=== PATIENT | female | born 1965 | race Caucasian/White ===

== ENCOUNTER → 2016-11-15 | Outpatient (CLI) | payer OTHER | LOC: RAD 04:36 | DX: Z12.31 Encounter for screening mammogram for malignant neoplasm of breast (principal) ==

== ENCOUNTER → 2018-05-14 | Outpatient (CLI) | payer OTHER ==
--- NOTE | ~2018-05-14 | SLE ---
[facility] [place] [address] POLYSOMNOGRAPHY STUDY Name: GALI GOMEZ Room #: REG [facility]#: [id number] Admission: 05/14/18 Attend Phys: Alexy Hong MD Discharge: Date of : 65 Report #: [id number] THIS REPORT FOR: //name// CC: Alexy Hong [facility] physician/PCP Francisco Thapa MD DATE OF SERVICE: 05/14/2018 SLEEP STUDY ATTENDING PHYSICIAN: Dr. Francisco Thapa. The patient is a 52-year-old who weighs 209 pounds and is 65 inches tall with a BMI of 34.8. The patient had a home sleep study and was found to have severe DAI at an AHI of 37 per hour. As a result, the patient was referred for in-lab CPAP titration study. During the night study, the patient spent 417 minutes in bed and slept for 304 minutes with a sleep efficiency of 73%. Sleep latency was 22.7 minutes with a REM latency of 75 minutes. Overall, sleep architecture showed normal stage 1 and stage 2 sleep, increased slow wave and normal REM sleep. EKG monitoring revealed average heart rate of 68 beats per minute. No sustained arrhythmias were observed. No clinically significant PLMS seen. The patient was started on CPAP at 5 cm water and titrated up to 13 cm water. At the final pressure, the patient slept for 61 minutes. The patient had supine sleep, but no REM sleep seen. The patient's AHI was reduced to 2 per hour and oxygen saturation remained above 92%. At the lower pressure of 12 cm water, the patient did have 42 minutes of REM sleep and the patient's AHI was still 3.5 per hour. I would recommend the final pressure of 13 cm water and it should be effective. IMPRESSION: 1. Severe sleep apnea diagnosed by previous home sleep study. 2. No clinically significant periodic limb movements during sleep. RECOMMENDATIONS: 1. CPAP at 13 cm water completely eliminated the patient's sleep apnea and should be used on a nightly basis. 2. Follow up in 4-6 weeks to assess compliance with CPAP and to document clinical improvement. 3. Weight loss is strongly advised. [facility] [address] [place] [address] POLYSOMNOGRAPHY STUDY Name: GALI GOMEZWELL [id number] Admission: 05/14/18 Attend Phys: Alexy Hong MD Discharge: Date of : 65 Report #: [id number] 4. Avoid [employer] depressants. 5. Cautioned regarding driving until symptoms of sleep apnea resolve with the use of CPAP. <ELECTRONICALLY SIGNED> By: Alexy Hong MD 05/16/18 [id number] Alexy Hong MD /nt
== END ==
LOC: SLEEPLAB 14:57
DX: G47.33 Obstructive sleep apnea (adult) (pediatric) (principal); G47.19 Other hypersomnia; R53.83 Other fatigue; R06.83 Snoring; E66.09 Other obesity due to excess calories; Z68.34 Body mass index [BMI] 34.0-34.9, adult

== ENCOUNTER → 2020-06-08 | Outpatient (CLI) | payer OTHER | LOC: BC 14:10 | PROVIDERS: ATTEND Family Medicine | DX: Z12.31 Encounter for screening mammogram for malignant neoplasm of breast (principal) ==